=== PATIENT | female | born 1965 | race Hispanic/Latino ===

== ENCOUNTER 2021-07-01 16:59 | Inpatient (IN) | payer MEDICAID, OTHER ==
[~2021-07-01] VITALS: Ht 154.9 cm; Wt 67.4 kg
[2021-07-01 17:38] LABS: BASOPHILS % (AUTO) 0.4 % (0.0-5.0); EOSINOPHILS % (AUTO) 0.6 % (0.0-8.0); LYMPHOCYTES % (AUTO) 13.1 % (21.0-51.0); MEAN CORPUSCULAR HEMOGLOBIN 30.1 pg (27.0-33.0); MEAN CORPUSCULAR HGB CONC 33.9 g/dL (32.0-36.0); MEAN CORPUSCULAR VOLUME 88.8 fL (79-99); MONOCYTES % (AUTO) 5.7 % (3.0-13.0); NEUTROPHILS % (AUTO) 79.9 % (40.0-77.0); PLATELET COUNT (AUTO) 245 K/uL (130-400); RED BLOOD CELL COUNT(AUTO) 4.28 MIL/uL (4.00-5.50); RED CELL DISTRIBUTION WIDTH 11.9 % (11.0-15.5); WHITE BLOOD COUNT (AUTO) 12.1 K/uL (4.8-10.8)
[2021-07-01] MEDS ORDERED: VANCOMYCIN 1G VIAL IVPB STA (18:01)
[2021-07-01] MEDS ORDERED: ZOSYN 3.375GM+NS 50ML 50 ML IV STA (18:01)
[2021-07-01 18:03] LABS: CREATININE 0.8 mg/dL (0.5-1.5)
[2021-07-01 18:09] LABS: ALBUMIN 3.3 g/dL (3.5-5.0); BILIRUBIN,TOTAL 0.2 mg/dL (0.2-1.0); TOTAL PROTEIN, SERUM 8.1 g/dL (6.0-8.3)
[2021-07-01] MEDS ORDERED: ZOSYN 3.375GM+NS 50ML 50 ML ONE (18:09)
[2021-07-01] MEDS ORDERED: 0.9%NACL 50ML 50 ML IV ONE (18:11)
[2021-07-01] MEDS ORDERED: VANCOMYCIN 1G/250ML KIT 250 ML IV ONE (18:31)
[2021-07-01 19:11] LABS: APPEARANCE,URINE Clear (CLEAR); BILIRUBIN,URINE Negative (NEGATIVE); COLOR,URINE Yellow (YELLOW); GLUCOSE, URINE (UA) >=1000 mg/dL (NEGATIVE); KETONES,URINE 15 mg/dL (NEGATIVE); LEUKOCYTE ESTERASE ,URINE Negative (NEGATIVE); NITRATE,URINE Negative (NEGATIVE); OCCULT BLOOD,URINE Negative (NEGATIVE); PROTEIN,URINE Trace mg/dL (NEGATIVE)
[2021-07-01 19:22] LABS: BACTERIA,URINE Rare /HPF (None Seen); RBC,URINE 0-1 /HPF (0-1); SQUAMOUS EPITHELIAL CELL,UR Rare /HPF (0-2); WBC,URINE 0-1 /HPF (0-1)
[2021-07-01] MEDS ORDERED: ACETAMINOPHEN 325 MG TAB PO PRN ×2 (21:30)
[2021-07-01] MEDS ORDERED: LACTULOSE 20 GM/30 ML UDCUP PO PRN (21:30)
[2021-07-01] MEDS ORDERED: MAG/ALUM/SIMETH 30 ML UDCUP PO PRN (21:30)
[2021-07-01] MEDS ORDERED: NITROGLYCERIN 0.4 MG SL TAB SL PRN (21:30)
[2021-07-01] MEDS ORDERED: VANCOMYCIN PROTOCOL PER PHARMACY IV PRN (21:30)
[2021-07-01] MEDS ORDERED: ZOLPIDEM TARTRATE 5 MG TAB PO PRN (21:30)
[2021-07-01 21:59] LABS: HEMOGLOBIN A1C 11.7 % (4.0-6.0)
[2021-07-01] MEDS: LACTATED RINGERS 1000ML 1,000 ML IV SCH (22:20)
[2021-07-02 04:05] VITALS: BP 137/74
[2021-07-02] MEDS: ZOSYN 3.375GM+NS 50ML 50 ML IV SCH ×3 (05:36→20:24)
[2021-07-02] MEDS: INSULIN HUMULIN R 100 UNIT/ML 3ML SQ SCH ×7 (06:27→21:40)
[2021-07-02] MEDS: VANCOMYCIN 1G/250ML KIT 250 ML IV SCH ×2 (08:00→20:23)
[2021-07-02 08:15] VITALS: BP 107/58
[2021-07-02] MEDS: FAMOTIDINE 20MG TAB PO SCH ×2 (10:12→20:24)
[2021-07-02] MEDS: METRONIDAZOLE 500 MG TABLET PO SCH ×3 (10:12→20:24)
[2021-07-02] MEDS: LISINOPRIL 10 MG TABLET PO SCH (10:13)
[2021-07-02] MEDS: ENOXAPARIN SODIUM 40 MG/0.4 ML SYRINGE SQ SCH (10:14)
[2021-07-02 11:52] VITALS: BP 121/64
[2021-07-02] MEDS: LACTATED RINGERS 1000ML 1,000 ML IV SCH (14:09)
[2021-07-02] MEDS ORDERED: DIPH,PERTUSS(ACELL),TET VAC/PF 0.5 ML VIAL IM ONE (15:30)
[2021-07-02 16:14] VITALS: BP 151/87
[2021-07-02] MEDS: GUAIFENESIN-CODEINE 5 ML SYRUP PO PRN (17:54)
[2021-07-02] MEDS ORDERED: 0.9% NACL 250ML 250 ML ONE (19:45)
[2021-07-02 19:57] VITALS: BP 136/69
[2021-07-02] MEDS: INSULIN GLARGINE 100 UNITS/ML 10 ML VIAL SQ SCH (21:41)
[2021-07-02 23:13] VITALS: BP 100/54
[2021-07-03] VITALS (20 sets, daily range): BP systolic 97–162; BP diastolic 50–85
[2021-07-03] MEDS: LACTATED RINGERS 1000ML 1,000 ML IV SCH ×2 (03:26→20:06)
[2021-07-03] MEDS: ZOSYN 3.375GM+NS 50ML 50 ML IV SCH ×3 (04:17→20:06)
[2021-07-03] MEDS: ONDANSETRON 4MG INJ IV PRN (04:25)
[2021-07-03 04:53] LABS: HEMATOCRIT 33.9 % (36-48); MEAN CORPUSCULAR HEMOGLOBIN 29.8 pg (27.0-33.0); MEAN CORPUSCULAR HGB CONC 33.6 g/dL (32.0-36.0); MEAN CORPUSCULAR VOLUME 88.7 fL (79-99); RED BLOOD CELL COUNT(AUTO) 3.82 MIL/uL (4.00-5.50); WHITE BLOOD COUNT (AUTO) 13.3 K/uL (4.8-10.8)
[2021-07-03 05:03] LABS: INR 1.09 (0.85-1.15); PROTHROMBIN TIME 11.8 SEC (9.6-11.6)
[2021-07-03 05:04] LABS: PARTIAL THROMBOPLASTIN TIME 31.3 SEC (26.3-35.5)
[2021-07-03 05:05] LABS: POTASSIUM 3.5 mmol/L (3.5-5.1)
[2021-07-03] MEDS: INSULIN HUMULIN R 100 UNIT/ML 3ML SQ SCH ×7 (05:48→20:08)
[2021-07-03] MEDS: VANCOMYCIN 1G/250ML KIT 250 ML IV SCH ×2 (08:00→20:06)
[2021-07-03] MEDS ORDERED: GADOTERATE MEGLUMINE 10 MMOL/20 ML VIAL IV ONE (08:08)
[2021-07-03] MEDS: ENOXAPARIN SODIUM 40 MG/0.4 ML SYRINGE SQ SCH (09:00)
[2021-07-03] MEDS: METRONIDAZOLE 500 MG TABLET PO SCH ×3 (11:30→20:06)
[2021-07-03] MEDS: LISINOPRIL 10 MG TABLET PO SCH (11:31)
[2021-07-03] MEDS: FAMOTIDINE 20MG TAB PO SCH ×2 (11:31→20:06)
[2021-07-03] MEDS ORDERED: 0.9%NACL 1000ML 1,000 ML IV ONE (12:25)
[2021-07-03] MEDS ORDERED: BUPIVACAINE/PF 0.5% 30ML VIAL ONE (13:21)
[2021-07-03] MEDS ORDERED: LIDOCAINE HCL 1% 20 ML VIAL ONE (13:21)
[2021-07-03] MEDS ORDERED: PROPOFOL 10 MG/ML 20ML VIAL IV ONE ×2 (13:34→13:44)
[2021-07-03] MEDS ORDERED: LIDOCAINE PF 100MG/5ML (2%) SYRINGE 5ML ONE (13:34)
[2021-07-03] MEDS ORDERED: MIDAZOLAM HCL 1 MG/ML 2ML VIAL ONE (13:34)
[2021-07-03] MEDS ORDERED: FENTANYL CITRATE PF 50 MCG/1 ML 2ML VIAL ONE (13:34)
[2021-07-03] MEDS ORDERED: ONDANSETRON 4MG INJ ONE (13:49)
[2021-07-03] MEDS ORDERED: EPHEDRINE SULFATE 50 MG/ML AMPULE ONE (14:00)
[2021-07-03] MEDS: INSULIN GLARGINE 100 UNITS/ML 10 ML VIAL SQ SCH (20:08)
[2021-07-03] MEDS: GUAIFENESIN-CODEINE 5 ML SYRUP PO PRN (20:10)
[2021-07-04 03:53] VITALS: BP 115/57
[2021-07-04] MEDS: ZOSYN 3.375GM+NS 50ML 50 ML IV SCH ×3 (04:05→20:36)
[2021-07-04 04:38] LABS: HEMATOCRIT 34.1 % (36-48); MEAN CORPUSCULAR HEMOGLOBIN 30.1 pg (27.0-33.0); MEAN CORPUSCULAR VOLUME 88.3 fL (79-99); RED BLOOD CELL COUNT(AUTO) 3.86 MIL/uL (4.00-5.50); WHITE BLOOD COUNT (AUTO) 13.9 K/uL (4.8-10.8)
[2021-07-04 05:01] LABS: CREATININE 1.1 mg/dL (0.5-1.5); POTASSIUM 3.5 mmol/L (3.5-5.1)
[2021-07-04] MEDS: INSULIN HUMULIN R 100 UNIT/ML 3ML SQ SCH ×7 (05:43→20:29)
[2021-07-04] MEDS ORDERED: MORPHINE 2 MG SYG IVP PRN (08:00)
[2021-07-04 08:20] VITALS: BP 143/78
[2021-07-04] MEDS ORDERED: HYDROMORPHONE 0.5 MG SYG (0.5MG/0.5ML) IVP PRN (08:30)
[2021-07-04] MEDS: VANCOMYCIN 1G/250ML KIT 250 ML IV SCH ×2 (09:42→20:36)
[2021-07-04] MEDS: METRONIDAZOLE 500 MG TABLET PO SCH ×3 (09:44→20:36)
[2021-07-04] MEDS: FAMOTIDINE 20MG TAB PO SCH ×2 (09:44→20:36)
[2021-07-04] MEDS: LISINOPRIL 10 MG TABLET PO SCH (09:44)
[2021-07-04] MEDS: ENOXAPARIN SODIUM 40 MG/0.4 ML SYRINGE SQ SCH (09:45)
[2021-07-04] MEDS: ONDANSETRON 4MG INJ IV PRN ×2 (09:52→23:47)
[2021-07-04 12:03] VITALS: BP 138/71
[2021-07-04] MEDS: LACTATED RINGERS 1000ML 1,000 ML IV SCH (12:19)
[2021-07-04 16:17] VITALS: BP 134/69
[2021-07-04 20:04] VITALS: BP 146/73
[2021-07-04] MEDS: INSULIN GLARGINE 100 UNITS/ML 10 ML VIAL SQ SCH (20:43)
[2021-07-05] VITALS (8 sets, daily range): BP systolic 152–187; BP diastolic 80–91
[2021-07-05] MEDS: ZOSYN 3.375GM+NS 50ML 50 ML IV SCH (04:08)
[2021-07-05] MEDS: INSULIN HUMULIN R 100 UNIT/ML 3ML SQ SCH ×7 (05:49→21:00)
[2021-07-05 06:09] LABS: BASOPHILS % (AUTO) 0.5 % (0.0-5.0); EOSINOPHILS % (AUTO) 0.4 % (0.0-8.0); HEMATOCRIT 30.8 % (36-48); LYMPHOCYTES % (AUTO) 12.7 % (21.0-51.0); MEAN CORPUSCULAR HEMOGLOBIN 29.8 pg (27.0-33.0); MEAN CORPUSCULAR HGB CONC 33.4 g/dL (32.0-36.0); MONOCYTES % (AUTO) 6.2 % (3.0-13.0); NEUTROPHILS % (AUTO) 79.8 % (40.0-77.0); PLATELET COUNT (AUTO) 244 K/uL (130-400); RED BLOOD CELL COUNT(AUTO) 3.46 MIL/uL (4.00-5.50); RED CELL DISTRIBUTION WIDTH 12.3 % (11.0-15.5); WHITE BLOOD COUNT (AUTO) 9.7 K/uL (4.8-10.8)
[2021-07-05 06:24] LABS: CREATININE 0.9 mg/dL (0.5-1.5); POTASSIUM 3.1 mmol/L (3.5-5.1)
[2021-07-05] MEDS ORDERED: KCL 20 MEQ ERTAB PO PRN (08:00)
[2021-07-05] MEDS ORDERED: LIDOCAINE HCL-MPF 1% 2ML VIAL IV PRN (08:00)
[2021-07-05] MEDS ORDERED: POTASSIUM CHLORIDE 10% ELIXIR 20 MEQ/15 ML UDCUP PO PRN ×2 (08:00→19:30)
[2021-07-05] MEDS: VANCOMYCIN 1G/250ML KIT 250 ML IV SCH (08:00)
[2021-07-05] MEDS ORDERED: POTASSIUM CHLORIDE 20MEQ/100ML 100 ML IV PRN (08:00)
[2021-07-05] MEDS: METRONIDAZOLE 500 MG TABLET PO SCH (09:05)
[2021-07-05] MEDS: FAMOTIDINE 20MG TAB PO SCH ×2 (09:06→20:46)
[2021-07-05] MEDS: LISINOPRIL 10 MG TABLET PO SCH (09:06)
[2021-07-05] MEDS: ENOXAPARIN SODIUM 40 MG/0.4 ML SYRINGE SQ SCH (09:08)
[2021-07-05] MEDS: ONDANSETRON 4MG INJ IV PRN ×2 (09:10→16:57)
[2021-07-05] MEDS: HYDRALAZINE 20MG/ML VIAL IV PRN (17:41)
[2021-07-05] MEDS: DOXYCYCLINE HYCLATE 100 MG TABLET PO SCH (20:46)
[2021-07-05] MEDS: ATORVASTATIN 40 MG TABLET PO SCH (20:46)
[2021-07-05] MEDS: KCL 20 MEQ ERTAB PO PRN (20:47)
[2021-07-05] MEDS: INSULIN GLARGINE 100 UNITS/ML 10 ML VIAL SQ SCH (21:10)
[2021-07-06] MEDS: ONDANSETRON 4MG INJ IV PRN ×2 (00:07→08:50)
[2021-07-06 00:08] VITALS: BP 153/85
[2021-07-06] MEDS: POTASSIUM CHLORIDE 20MEQ/100ML 100 ML IV PRN ×2 (00:08→03:22)
[2021-07-06] MEDS: LIDOCAINE HCL-MPF 1% 2ML VIAL IV PRN ×2 (00:08→03:22)
[2021-07-06 04:08] VITALS: BP 165/86
[2021-07-06] MEDS: HYDRALAZINE 20MG/ML VIAL IV PRN (04:59)
[2021-07-06] MEDS: INSULIN HUMULIN R 100 UNIT/ML 3ML SQ SCH ×7 (06:21→20:42)
[2021-07-06 06:26] LABS: BASOPHILS % (AUTO) 0.6 % (0.0-5.0); EOSINOPHILS % (AUTO) 0.2 % (0.0-8.0); HEMATOCRIT 35.3 % (36-48); LYMPHOCYTES % (AUTO) 12.5 % (21.0-51.0); MEAN CORPUSCULAR HEMOGLOBIN 29.9 pg (27.0-33.0); MEAN CORPUSCULAR HGB CONC 33.7 g/dL (32.0-36.0); MEAN CORPUSCULAR VOLUME 88.7 fL (79-99); MONOCYTES % (AUTO) 7.5 % (3.0-13.0); NEUTROPHILS % (AUTO) 78.8 % (40.0-77.0); PLATELET COUNT (AUTO) 289 K/uL (130-400); RED BLOOD CELL COUNT(AUTO) 3.98 MIL/uL (4.00-5.50); RED CELL DISTRIBUTION WIDTH 12.1 % (11.0-15.5); WHITE BLOOD COUNT (AUTO) 10.6 K/uL (4.8-10.8)
[2021-07-06 06:45] LABS: CREATININE 0.8 mg/dL (0.5-1.5); POTASSIUM 3.6 mmol/L (3.5-5.1)
[2021-07-06 08:00] VITALS: BP 131/67
[2021-07-06] MEDS: DOXYCYCLINE HYCLATE 100 MG TABLET PO SCH ×3 (08:38→20:30)
[2021-07-06] MEDS: ASPIRIN 81 MG EC TAB PO SCH (08:38)
[2021-07-06] MEDS: FAMOTIDINE 20MG TAB PO SCH ×3 (08:38→20:29)
[2021-07-06] MEDS: LISINOPRIL 10 MG TABLET PO SCH (08:39)
[2021-07-06] MEDS: ENOXAPARIN SODIUM 40 MG/0.4 ML SYRINGE SQ SCH (08:42)
[2021-07-06 12:00] VITALS: BP 150/82
[2021-07-06] MEDS ORDERED: LISINOPRIL 10 MG TABLET PO SCH (12:00)
[2021-07-06] MEDS ORDERED: IOHEXOL-350 75 ML VIAL IV ONE (14:38)
[2021-07-06 16:00] VITALS: BP 158/93
[2021-07-06] MEDS: KCL 20 MEQ ERTAB PO PRN (18:36)
[2021-07-06 20:08] VITALS: BP 162/81
[2021-07-06] MEDS: ATORVASTATIN 40 MG TABLET PO SCH ×2 (20:27→20:29)
[2021-07-06] MEDS: INSULIN GLARGINE 100 UNITS/ML 10 ML VIAL SQ SCH (20:43)
[2021-07-07] VITALS (7 sets, daily range): BP systolic 130–170; BP diastolic 68–88
[2021-07-07 05:59] LABS: BASOPHILS % (AUTO) 0.3 % (0.0-5.0); EOSINOPHILS % (AUTO) 0.6 % (0.0-8.0); HEMATOCRIT 33.4 % (36-48); LYMPHOCYTES % (AUTO) 14.6 % (21.0-51.0); MEAN CORPUSCULAR HEMOGLOBIN 29.7 pg (27.0-33.0); MEAN CORPUSCULAR HGB CONC 33.8 g/dL (32.0-36.0); MEAN CORPUSCULAR VOLUME 87.7 fL (79-99); MONOCYTES % (AUTO) 7.6 % (3.0-13.0); NEUTROPHILS % (AUTO) 76.5 % (40.0-77.0); PLATELET COUNT (AUTO) 301 K/uL (130-400); RED BLOOD CELL COUNT(AUTO) 3.81 MIL/uL (4.00-5.50); RED CELL DISTRIBUTION WIDTH 12.8 % (11.0-15.5); WHITE BLOOD COUNT (AUTO) 10.3 K/uL (4.8-10.8)
[2021-07-07] MEDS: INSULIN HUMULIN R 100 UNIT/ML 3ML SQ SCH ×7 (06:11→20:41)
[2021-07-07 06:12] LABS: CREATININE 1.1 mg/dL (0.5-1.5); POTASSIUM 3.4 mmol/L (3.5-5.1)
[2021-07-07] MEDS: ASPIRIN 81 MG EC TAB PO SCH (09:28)
[2021-07-07] MEDS: LISINOPRIL 10 MG TABLET PO SCH (09:29)
[2021-07-07] MEDS: ENOXAPARIN SODIUM 40 MG/0.4 ML SYRINGE SQ SCH (09:30)
[2021-07-07] MEDS: CLOPIDOGREL 75MG TAB PO SCH (11:54)
[2021-07-07] MEDS: INSULIN GLARGINE 100 UNITS/ML 10 ML VIAL SQ SCH (20:41)
[2021-07-07] MEDS: FAMOTIDINE 20MG TAB PO SCH (20:46)
[2021-07-07] MEDS: DOXYCYCLINE HYCLATE 100 MG TABLET PO SCH (20:46)
[2021-07-07] MEDS: ATORVASTATIN 40 MG TABLET PO SCH (20:46)
[2021-07-08 04:28] VITALS: BP 143/78
[2021-07-08] MEDS: INSULIN HUMULIN R 100 UNIT/ML 3ML SQ SCH ×7 (06:23→21:00)
[2021-07-08 08:06] VITALS: BP 177/94
[2021-07-08] MEDS: LISINOPRIL 10 MG TABLET PO SCH (10:16)
[2021-07-08] MEDS: ASPIRIN 81 MG EC TAB PO SCH (10:16)
[2021-07-08] MEDS: ENOXAPARIN SODIUM 40 MG/0.4 ML SYRINGE SQ SCH (10:16)
[2021-07-08] MEDS: DOXYCYCLINE HYCLATE 100 MG TABLET PO SCH ×2 (10:17→19:59)
[2021-07-08] MEDS: CLOPIDOGREL 75MG TAB PO SCH (10:17)
[2021-07-08] MEDS: FAMOTIDINE 20MG TAB PO SCH ×2 (10:21→19:59)
[2021-07-08 11:40] VITALS: BP 178/94
[2021-07-08 15:23] VITALS: BP 192/102
[2021-07-08] MEDS: ATORVASTATIN 40 MG TABLET PO SCH (19:59)
[2021-07-08] MEDS: ONDANSETRON 4MG INJ IV PRN (19:59)
[2021-07-08 20:39] VITALS: BP_SYST 146
[2021-07-08] MEDS: INSULIN GLARGINE 100 UNITS/ML 10 ML VIAL SQ SCH (21:00)
[2021-07-08 23:13] VITALS: BP 143/72
[2021-07-09 04:16] VITALS: BP 141/74
[2021-07-09 05:27] LABS: BASOPHILS % (AUTO) 0.4 % (0.0-5.0); EOSINOPHILS % (AUTO) 1.4 % (0.0-8.0); HEMATOCRIT 34.3 % (36-48); LYMPHOCYTES % (AUTO) 20.1 % (21.0-51.0); MEAN CORPUSCULAR HEMOGLOBIN 29.8 pg (27.0-33.0); MEAN CORPUSCULAR HGB CONC 34.1 g/dL (32.0-36.0); MEAN CORPUSCULAR VOLUME 87.3 fL (79-99); MONOCYTES % (AUTO) 6.2 % (3.0-13.0); NEUTROPHILS % (AUTO) 71.6 % (40.0-77.0); PLATELET COUNT (AUTO) 317 K/uL (130-400); RED BLOOD CELL COUNT(AUTO) 3.93 MIL/uL (4.00-5.50); RED CELL DISTRIBUTION WIDTH 12.4 % (11.0-15.5); WHITE BLOOD COUNT (AUTO) 9.9 K/uL (4.8-10.8)
[2021-07-09 05:40] LABS: POTASSIUM 3.1 mmol/L (3.5-5.1)
[2021-07-09] MEDS: INSULIN HUMULIN R 100 UNIT/ML 3ML SQ SCH ×7 (07:30→20:37)
[2021-07-09 08:00] VITALS: BP 150/85
[2021-07-09] MEDS: CLOPIDOGREL 75MG TAB PO SCH (09:42)
[2021-07-09] MEDS: ASPIRIN 81 MG EC TAB PO SCH (09:42)
[2021-07-09] MEDS: FAMOTIDINE 20MG TAB PO SCH ×2 (09:42→20:06)
[2021-07-09] MEDS: DOXYCYCLINE HYCLATE 100 MG TABLET PO SCH ×2 (09:42→20:06)
[2021-07-09] MEDS: LISINOPRIL 10 MG TABLET PO SCH (09:42)
[2021-07-09] MEDS: ENOXAPARIN SODIUM 40 MG/0.4 ML SYRINGE SQ SCH (09:43)
[2021-07-09 11:43] VITALS: BP 184/86
[2021-07-09 16:00] VITALS: BP 162/81
[2021-07-09 19:53] VITALS: BP 127/64
[2021-07-09] MEDS: ATORVASTATIN 40 MG TABLET PO SCH (20:06)
[2021-07-09] MEDS: INSULIN GLARGINE 100 UNITS/ML 10 ML VIAL SQ SCH (20:37)
[2021-07-10 00:12] VITALS: BP 128/62
[2021-07-10 03:48] VITALS: BP 136/78
[2021-07-10 05:15] LABS: BASOPHILS % (AUTO) 0.8 % (0.0-5.0); HEMATOCRIT 32.9 % (36-48); LYMPHOCYTES % (AUTO) 26.5 % (21.0-51.0); MEAN CORPUSCULAR HEMOGLOBIN 29.2 pg (27.0-33.0); MEAN CORPUSCULAR HGB CONC 33.1 g/dL (32.0-36.0); MEAN CORPUSCULAR VOLUME 88.2 fL (79-99); MONOCYTES % (AUTO) 7.8 % (3.0-13.0); NEUTROPHILS % (AUTO) 62.5 % (40.0-77.0); PLATELET COUNT (AUTO) 307 K/uL (130-400); RED BLOOD CELL COUNT(AUTO) 3.73 MIL/uL (4.00-5.50); RED CELL DISTRIBUTION WIDTH 12.5 % (11.0-15.5)
[2021-07-10] MEDS: INSULIN HUMULIN R 100 UNIT/ML 3ML SQ SCH ×7 (05:25→20:28)
[2021-07-10 05:35] LABS: ALBUMIN 2.3 g/dL (3.5-5.0); BILIRUBIN,TOTAL 0.2 mg/dL (0.2-1.0); CREATININE 1.1 mg/dL (0.5-1.5); TOTAL PROTEIN, SERUM 6.3 g/dL (6.0-8.3)
[2021-07-10] MEDS: KCL 20 MEQ ERTAB PO PRN ×3 (05:44→15:07)
[2021-07-10 07:57] VITALS: BP 154/81
[2021-07-10] MEDS: ASPIRIN 81 MG EC TAB PO SCH (09:18)
[2021-07-10] MEDS: LISINOPRIL 10 MG TABLET PO SCH (09:18)
[2021-07-10] MEDS: FAMOTIDINE 20MG TAB PO SCH ×2 (09:19→20:55)
[2021-07-10] MEDS: DOXYCYCLINE HYCLATE 100 MG TABLET PO SCH ×2 (09:19→20:55)
[2021-07-10] MEDS: CLOPIDOGREL 75MG TAB PO SCH (09:19)
[2021-07-10] MEDS: ENOXAPARIN SODIUM 40 MG/0.4 ML SYRINGE SQ SCH (09:20)
[2021-07-10 12:00] VITALS: BP 144/85
[2021-07-10] MEDS: HYDRALAZINE 20MG/ML VIAL IV PRN (15:58)
[2021-07-10 16:00] VITALS: BP 179/101
[2021-07-10] MEDS: ONDANSETRON 4MG INJ IV PRN (18:12)
[2021-07-10 19:27] VITALS: BP 133/72
[2021-07-10] MEDS: ATORVASTATIN 40 MG TABLET PO SCH (20:55)
[2021-07-10] MEDS: INSULIN GLARGINE 100 UNITS/ML 10 ML VIAL SQ SCH (20:56)
[2021-07-11] VITALS (22 sets, daily range): BP systolic 94–190; BP diastolic 55–112
[2021-07-11] MEDS: INSULIN HUMULIN R 100 UNIT/ML 3ML SQ SCH ×7 (05:52→20:12)
[2021-07-11] MEDS ORDERED: 0.9%NACL 1000ML 1,000 ML IV ONE (06:28)
[2021-07-11] MEDS ORDERED: LIDOCAINE HCL 1% 20 ML VIAL ONE (07:07)
[2021-07-11] MEDS ORDERED: BUPIVACAINE/PF 0.5% 30ML VIAL ONE (07:08)
[2021-07-11] MEDS ORDERED: PROPOFOL 10 MG/ML 20ML VIAL IV ONE (07:28)
[2021-07-11] MEDS ORDERED: MIDAZOLAM HCL 1 MG/ML 2ML VIAL ONE (07:28)
[2021-07-11] MEDS ORDERED: FENTANYL CITRATE PF 50 MCG/1 ML 2ML VIAL ONE (07:28)
[2021-07-11] MEDS ORDERED: ONDANSETRON 4MG INJ ONE (07:28)
[2021-07-11] MEDS ORDERED: LIDOCAINE PF 100MG/5ML (2%) SYRINGE 5ML ONE (07:29)
[2021-07-11] MEDS ORDERED: CEFAZOLIN SODIUM 1 GM VIAL ONE (07:59)
[2021-07-11] MEDS ORDERED: PHENYLEPHRINE HCL 10 MG/ML 1ML VIAL IV ONE (08:02)
[2021-07-11] MEDS: FAMOTIDINE 20MG TAB PO SCH ×2 (09:00→20:15)
[2021-07-11] MEDS: LISINOPRIL 10 MG TABLET PO SCH (09:00)
[2021-07-11] MEDS: ASPIRIN 81 MG EC TAB PO SCH (09:00)
[2021-07-11] MEDS: ENOXAPARIN SODIUM 40 MG/0.4 ML SYRINGE SQ SCH (09:00)
[2021-07-11] MEDS: CLOPIDOGREL 75MG TAB PO SCH (09:00)
[2021-07-11] MEDS ORDERED: HYDROMORPHONE 1 MG INJ IVP PRN (11:30)
[2021-07-11] MEDS: DOXYCYCLINE HYCLATE 100 MG TABLET PO SCH ×2 (11:46→20:15)
[2021-07-11] MEDS: HYDRALAZINE 20MG/ML VIAL IV PRN (12:10)
[2021-07-11 16:24] LABS: APPEARANCE,URINE CLOUDY (CLEAR); BILIRUBIN,URINE NEGATIVE (NEGATIVE); COLOR,URINE ORANGE (YELLOW); GLUCOSE, URINE (UA) 100 mg/dL (NEGATIVE); KETONES,URINE 15 mg/dL (NEGATIVE); LEUKOCYTE ESTERASE ,URINE TRACE (NEGATIVE); NITRATE,URINE NEGATIVE (NEGATIVE); OCCULT BLOOD,URINE LARGE (NEGATIVE); PH,URINE 6.5 (5.0-8.0); PROTEIN,URINE 30 mg/dL (NEGATIVE); UROBILINOGEN,URINE 0.2 mg/dL (0.2-1.0)
[2021-07-11 16:42] LABS: BACTERIA,URINE Rare /HPF (None Seen); RBC,URINE >100 /HPF (0-1); SQUAMOUS EPITHELIAL CELL,UR Rare /HPF (0-2)
[2021-07-11] MEDS: MORPHINE 2 MG SYG IVP PRN (18:36)
[2021-07-11] MEDS: ATORVASTATIN 40 MG TABLET PO SCH (20:15)
[2021-07-11] MEDS: INSULIN GLARGINE 100 UNITS/ML 10 ML VIAL SQ SCH (20:28)
[2021-07-12 03:24] VITALS: BP 146/78
[2021-07-12] MEDS: INSULIN HUMULIN R 100 UNIT/ML 3ML SQ SCH ×8 (06:10→19:50)
[2021-07-12 06:36] LABS: BASOPHILS % (AUTO) 0.4 % (0.0-5.0); EOSINOPHILS % (AUTO) 0.7 % (0.0-8.0); HEMATOCRIT 33.3 % (36-48); LYMPHOCYTES % (AUTO) 15.4 % (21.0-51.0); MEAN CORPUSCULAR HEMOGLOBIN 29.5 pg (27.0-33.0); MEAN CORPUSCULAR HGB CONC 32.1 g/dL (32.0-36.0); MEAN CORPUSCULAR VOLUME 91.7 fL (79-99); MONOCYTES % (AUTO) 5.1 % (3.0-13.0); NEUTROPHILS % (AUTO) 77.8 % (40.0-77.0); PLATELET COUNT (AUTO) 281 K/uL (130-400); RED BLOOD CELL COUNT(AUTO) 3.63 MIL/uL (4.00-5.50); RED CELL DISTRIBUTION WIDTH 12.9 % (11.0-15.5); WHITE BLOOD COUNT (AUTO) 12.2 K/uL (4.8-10.8)
[2021-07-12 06:43] LABS: POTASSIUM 3.6 mmol/L (3.5-5.1)
[2021-07-12 07:10] VITALS: BP 135/72
[2021-07-12] MEDS ORDERED: IOHEXOL-350 75 ML VIAL IV ONE (07:50)
[2021-07-12] MEDS: MORPHINE 2 MG SYG IVP PRN (07:59)
[2021-07-12] MEDS: ENOXAPARIN SODIUM 40 MG/0.4 ML SYRINGE SQ SCH (09:00)
[2021-07-12] MEDS: CLOPIDOGREL 75MG TAB PO SCH (09:00)
[2021-07-12 11:10] VITALS: BP 124/74
[2021-07-12] MEDS: DOXYCYCLINE HYCLATE 100 MG TABLET PO SCH ×2 (11:31→19:48)
[2021-07-12] MEDS: FAMOTIDINE 20MG TAB PO SCH ×2 (11:32→19:48)
[2021-07-12] MEDS: ASPIRIN 81 MG EC TAB PO SCH (11:32)
[2021-07-12] MEDS: LISINOPRIL 10 MG TABLET PO SCH (11:32)
[2021-07-12 15:10] VITALS: BP 145/84
[2021-07-12 19:45] VITALS: BP 137/76
[2021-07-12] MEDS: ATORVASTATIN 40 MG TABLET PO SCH (19:48)
[2021-07-12] MEDS: INSULIN GLARGINE 100 UNITS/ML 10 ML VIAL SQ SCH (19:50)
[2021-07-12 23:20] VITALS: BP 140/78
[2021-07-13] MEDS: MORPHINE 2 MG SYG IVP PRN (00:04)
[2021-07-13] MEDS: ONDANSETRON 4MG INJ IV PRN (00:07)
[2021-07-13 03:50] VITALS: BP 125/74
[2021-07-13] MEDS: INSULIN HUMULIN R 100 UNIT/ML 3ML SQ SCH ×7 (06:11→19:54)
[2021-07-13 06:14] LABS: BASOPHILS % (AUTO) 0.6 % (0.0-5.0); EOSINOPHILS % (AUTO) 1.3 % (0.0-8.0); HEMATOCRIT 32.6 % (36-48); LYMPHOCYTES % (AUTO) 17.3 % (21.0-51.0); MEAN CORPUSCULAR HEMOGLOBIN 29.6 pg (27.0-33.0); MEAN CORPUSCULAR HGB CONC 32.8 g/dL (32.0-36.0); MEAN CORPUSCULAR VOLUME 90.3 fL (79-99); MONOCYTES % (AUTO) 6.4 % (3.0-13.0); NEUTROPHILS % (AUTO) 74.1 % (40.0-77.0); PLATELET COUNT (AUTO) 275 K/uL (130-400); RED BLOOD CELL COUNT(AUTO) 3.61 MIL/uL (4.00-5.50); RED CELL DISTRIBUTION WIDTH 12.8 % (11.0-15.5); WHITE BLOOD COUNT (AUTO) 10.5 K/uL (4.8-10.8)
[2021-07-13 06:24] LABS: CREATININE 1.1 mg/dL (0.5-1.5); POTASSIUM 3.6 mmol/L (3.5-5.1)
[2021-07-13 07:10] VITALS: BP 139/80
[2021-07-13] MEDS: FAMOTIDINE 20MG TAB PO SCH ×2 (09:04→19:53)
[2021-07-13] MEDS: LISINOPRIL 10 MG TABLET PO SCH (09:05)
[2021-07-13] MEDS: ASPIRIN 81 MG EC TAB PO SCH (09:05)
[2021-07-13] MEDS: DOXYCYCLINE HYCLATE 100 MG TABLET PO SCH ×2 (09:05→19:53)
[2021-07-13 11:10] VITALS: BP 168/78
[2021-07-13 15:10] VITALS: BP 169/90
[2021-07-13] MEDS: HYDRALAZINE 20MG/ML VIAL IV PRN (16:33)
[2021-07-13] MEDS: ATORVASTATIN 40 MG TABLET PO SCH (19:54)
[2021-07-13 20:07] VITALS: BP 124/58
[2021-07-13] MEDS: INSULIN GLARGINE 100 UNITS/ML 10 ML VIAL SQ SCH (20:11)
[2021-07-13 23:29] VITALS: BP 94/58
[2021-07-14 04:13] VITALS: BP 111/60
[2021-07-14] MEDS: INSULIN HUMULIN R 100 UNIT/ML 3ML SQ SCH ×7 (05:35→21:00)
[2021-07-14 06:29] LABS: BASOPHILS % (AUTO) 0.6 % (0.0-5.0); EOSINOPHILS % (AUTO) 1.9 % (0.0-8.0); HEMATOCRIT 32.6 % (36-48); LYMPHOCYTES % (AUTO) 22.5 % (21.0-51.0); MEAN CORPUSCULAR HEMOGLOBIN 29.8 pg (27.0-33.0); MEAN CORPUSCULAR HGB CONC 33.1 g/dL (32.0-36.0); MEAN CORPUSCULAR VOLUME 89.8 fL (79-99); MONOCYTES % (AUTO) 6.1 % (3.0-13.0); NEUTROPHILS % (AUTO) 68.7 % (40.0-77.0); PLATELET COUNT (AUTO) 275 K/uL (130-400); RED BLOOD CELL COUNT(AUTO) 3.63 MIL/uL (4.00-5.50); RED CELL DISTRIBUTION WIDTH 12.6 % (11.0-15.5); WHITE BLOOD COUNT (AUTO) 8.8 K/uL (4.8-10.8)
[2021-07-14 08:00] VITALS: BP 140/81
[2021-07-14] MEDS: DOXYCYCLINE HYCLATE 100 MG TABLET PO SCH ×2 (10:08→20:36)
[2021-07-14] MEDS: FAMOTIDINE 20MG TAB PO SCH ×2 (10:08→20:36)
[2021-07-14] MEDS: ASPIRIN 81 MG EC TAB PO SCH (10:09)
[2021-07-14] MEDS: LISINOPRIL 10 MG TABLET PO SCH (10:09)
[2021-07-14 11:58] VITALS: BP 157/82
[2021-07-14 16:00] VITALS: BP 174/93
[2021-07-14 20:00] VITALS: BP 156/77
[2021-07-14] MEDS: ATORVASTATIN 40 MG TABLET PO SCH (20:36)
[2021-07-14] MEDS: INSULIN GLARGINE 100 UNITS/ML 10 ML VIAL SQ SCH (20:59)
[2021-07-15] VITALS (15 sets, daily range): BP systolic 109–155; BP diastolic 37–80
[2021-07-15 04:27] LABS: HEMATOCRIT 32.2 % (36-48)
[2021-07-15 05:00] LABS: POTASSIUM 3.3 mmol/L (3.5-5.1)
[2021-07-15] MEDS: INSULIN HUMULIN R 100 UNIT/ML 3ML SQ SCH ×6 (07:30→18:30)
[2021-07-15] MEDS: DOXYCYCLINE HYCLATE 100 MG TABLET PO SCH ×2 (09:38→21:12)
[2021-07-15] MEDS: LISINOPRIL 10 MG TABLET PO SCH (09:38)
[2021-07-15] MEDS: FAMOTIDINE 20MG TAB PO SCH ×2 (09:38→21:12)
[2021-07-15] MEDS: ASPIRIN 81 MG EC TAB PO SCH (09:51)
[2021-07-15] MEDS: KCL 20 MEQ ERTAB PO SCH (11:58)
[2021-07-15] MEDS ORDERED: IODIXANOL 320 MG/ML 100 ML VIAL ONE (12:09)
[2021-07-15] MEDS ORDERED: LIDOCAINE HCL 400MG/20ML VIAL ONE (12:09)
[2021-07-15] MEDS ORDERED: NITROGLYCERIN 50MG VIAL IV ONE (12:09)
[2021-07-15] MEDS ORDERED: HEPARIN 10,000 UNIT/10ML (1,000 UNIT/ML) VIAL ONE (12:09)
[2021-07-15] MEDS ORDERED: SODIUM BICARB 50MEQ 50ML VIAL 50 ML ONE (12:09)
[2021-07-15] MEDS ORDERED: LABETALOL 20MG VIAL IV ONE ×2 (12:41→13:10)
[2021-07-15] MEDS ORDERED: 0.9%NACL 1000ML 1,000 ML IV SCH (14:00)
[2021-07-15] MEDS: INSULIN GLARGINE 100 UNITS/ML 10 ML VIAL SQ SCH (21:00)
[2021-07-15] MEDS: ATORVASTATIN 40 MG TABLET PO SCH (21:12)
[2021-07-16] VITALS (11 sets, daily range): BP systolic 107–152; BP diastolic 47–79
[2021-07-16] MEDS: INSULIN HUMULIN R 100 UNIT/ML 3ML SQ SCH ×8 (00:06→20:32)
[2021-07-16 04:35] LABS: CREATININE 1.1 mg/dL (0.5-1.5)
[2021-07-16 04:36] LABS: HEMATOCRIT 31.6 % (36-48); MEAN CORPUSCULAR HEMOGLOBIN 29.6 pg (27.0-33.0); MEAN CORPUSCULAR HGB CONC 32.6 g/dL (32.0-36.0); MEAN CORPUSCULAR VOLUME 90.8 fL (79-99); RED BLOOD CELL COUNT(AUTO) 3.48 MIL/uL (4.00-5.50); RED CELL DISTRIBUTION WIDTH 12.9 % (11.0-15.5); WHITE BLOOD COUNT (AUTO) 8.2 K/uL (4.8-10.8)
[2021-07-16] MEDS: LISINOPRIL 10 MG TABLET PO SCH (09:38)
[2021-07-16] MEDS: DOXYCYCLINE HYCLATE 100 MG TABLET PO SCH ×2 (09:39→20:23)
[2021-07-16] MEDS: ASPIRIN 81 MG EC TAB PO SCH (09:39)
[2021-07-16] MEDS: FAMOTIDINE 20MG TAB PO SCH ×2 (09:39→20:23)
[2021-07-16] MEDS: KCL 20 MEQ ERTAB PO SCH (09:42)
[2021-07-16] MEDS ORDERED: MIDAZOLAM HCL 1 MG/ML 2ML VIAL ONE (13:12)
[2021-07-16] MEDS ORDERED: HEPARIN 10,000 UNIT/10ML (1,000 UNIT/ML) VIAL ONE (13:12)
[2021-07-16] MEDS ORDERED: NITROGLYCERIN 50MG VIAL IV ONE (13:12)
[2021-07-16] MEDS ORDERED: SODIUM BICARB 50MEQ 50ML VIAL 50 ML ONE (13:12)
[2021-07-16] MEDS ORDERED: FENTANYL CITRATE PF 50 MCG/1 ML 2ML VIAL ONE (13:12)
[2021-07-16] MEDS ORDERED: IODIXANOL 320 MG/ML 100 ML VIAL ONE (13:12)
[2021-07-16] MEDS ORDERED: LIDOCAINE HCL 400MG/20ML VIAL ONE (13:13)
[2021-07-16] MEDS ORDERED: LABETALOL 20MG VIAL IV ONE ×2 (14:30→15:00)
[2021-07-16] MEDS ORDERED: CLOPIDOGREL 300MG TAB ONE ×2 (14:37→15:08)
[2021-07-16] MEDS ORDERED: ENALAPRILAT DIHYDRATE 1.25 MG/ML 2ML VIAL IVP ONE (14:51)
[2021-07-16] MEDS ORDERED: 0.9%NACL 1000ML 1,000 ML IV SCH (15:00)
[2021-07-16] MEDS: ONDANSETRON 4MG INJ IV PRN (16:30)
[2021-07-16] MEDS: ATORVASTATIN 40 MG TABLET PO SCH (20:23)
[2021-07-16] MEDS: INSULIN GLARGINE 100 UNITS/ML 10 ML VIAL SQ SCH (20:32)
[2021-07-17 00:06] VITALS: BP 107/58
[2021-07-17 03:44] VITALS: BP 99/51
[2021-07-17 04:49] LABS: HEMATOCRIT 30.7 % (36-48); MEAN CORPUSCULAR HEMOGLOBIN 29.3 pg (27.0-33.0); MEAN CORPUSCULAR HGB CONC 31.9 g/dL (32.0-36.0); MEAN CORPUSCULAR VOLUME 91.6 fL (79-99); RED BLOOD CELL COUNT(AUTO) 3.35 MIL/uL (4.00-5.50); WHITE BLOOD COUNT (AUTO) 8.3 K/uL (4.8-10.8)
[2021-07-17 05:18] LABS: POTASSIUM 3.7 mmol/L (3.5-5.1)
[2021-07-17] MEDS: INSULIN HUMULIN R 100 UNIT/ML 3ML SQ SCH ×4 (05:57→11:30)
[2021-07-17 08:06] VITALS: BP 117/61
[2021-07-17] MEDS ORDERED: PANTOPRAZOLE 40 MG TAB DR PO SCH (09:00)
[2021-07-17] MEDS ORDERED: ASPIRIN 81MG CHEW TAB PO SCH (09:00)
[2021-07-17] MEDS ORDERED: CLOPIDOGREL 75MG TAB PO SCH ×2 (09:00→09:50)
[2021-07-17] MEDS: LISINOPRIL 10 MG TABLET PO SCH (09:00)
[2021-07-17] MEDS: FAMOTIDINE 20MG TAB PO SCH (10:30)
[2021-07-17] MEDS: DOXYCYCLINE HYCLATE 100 MG TABLET PO SCH (10:30)
[2021-07-17] MEDS: KCL 20 MEQ ERTAB PO SCH (11:19)
[2021-07-17 11:34] VITALS: BP 113/63
[2021-07-17 12:30] VITALS: BP 130/56
== END 2021-07-17 16:44 | disposition home or self-care (01) | DRG 271 ==
LOC: EDH 16:59 → OBSVTOIN 17:00 → EDHIP 17:00 → INTOOBSV 17:00 → 3AH 07-02 03:14
PROVIDERS: ADMIT Internal Medicine; ATTEND Internal Medicine
PROC: 0KBW0ZZ Excision of Left Foot Muscle, Open Approach (ICD-10-PCS; 2021-07-03)
PROC: 0Y6N0ZD Detachment at Left Foot, Partial 4th Ray, Open Approach (ICD-10-PCS; 2021-07-11)
PROC: 0Y6N0ZF Detachment at Left Foot, Partial 5th Ray, Open Approach (ICD-10-PCS; 2021-07-11)
PROC: B41G1ZZ Fluoroscopy of Left Lower Extremity Arteries using Low Osmolar Contrast (ICD-10-PCS; 2021-07-15)
PROC: 04CU3ZZ Extirpation of Matter from Left Peroneal Artery, Percutaneous Approach (ICD-10-PCS; principal; 2021-07-16)
PROC: 047U3DZ Dilation of Left Peroneal Artery with Intraluminal Device, Percutaneous Approach (ICD-10-PCS; 2021-07-16)
DX: E11.52 Type 2 diabetes mellitus with diabetic peripheral angiopathy with gangrene (principal); L03.116 Cellulitis of left lower limb; E87.1 Hypo-osmolality and hyponatremia; M86.672 Other chronic osteomyelitis, left ankle and foot; I70.269 Atherosclerosis of native arteries of extremities with gangrene, unspecified extremity; E11.621 Type 2 diabetes mellitus with foot ulcer; E11.69 Type 2 diabetes mellitus with other specified complication; I10 Essential (primary) hypertension; R31.9 Hematuria, unspecified; L97.524 Non-pressure chronic ulcer of other part of left foot with necrosis of bone; L98.494 Non-pressure chronic ulcer of skin of other sites with necrosis of bone; B95.62 Methicillin resistant Staphylococcus aureus infection as the cause of diseases classified elsewhere; S91.332A Puncture wound without foreign body, left foot, initial encounter; D64.9 Anemia, unspecified; E11.42 Type 2 diabetes mellitus with diabetic polyneuropathy; E78.00 Pure hypercholesterolemia, unspecified; G89.29 Other chronic pain; M71.20 Synovial cyst of popliteal space [Baker], unspecified knee; Y93.89 Activity, other specified; Y92.89 Other specified places as the place of occurrence of the external cause; Y99.8 Other external cause status; Z86.14 Personal history of Methicillin resistant Staphylococcus aureus infection
CPT/HCPCS: 36247; 36415; 37229; 72170; 73630; 73720; 74178; 75635; 75710; 75716; 76770; 80048; 80053; 80202; 81001; 82948; 83036; 83605; 84132; 84145; 85014; 85018; 85025; 85027; 85347; 85610; 85730; 87040; 87070; 87076; 87077; 87088; 87186; 87205; 90715; 93926; 93971; 97039; 99156; 99157; C1760; C1769; C1893; C1894; G0378; J0360; J0690; J1644; J1650; J1815; J2001; J2250; J2370; J2405; J2543; J2704; J3010; J3370; J3480; J3490; J7030; J7050; J7120; Q9967

== ENCOUNTER 2021-08-16 02:11 | Inpatient (IN) | payer MEDICAID, OTHER ==
[~2021-08-16] VITALS: Ht 154.9 cm; Wt 58.1 kg
[2021-08-16] MEDS ORDERED: PANTOPRAZOLE 40MG INJ 80 MG in 0.9%NACL 100ML 100 ML IVP SCH (02:30)
[2021-08-16] MEDS ORDERED: PANTOPRAZOLE 40 MG/VIAL IV SCH (02:30)
[2021-08-16] MEDS ORDERED: 0.9%NACL 1000ML 1,000 ML IV ONE (02:30)
[2021-08-16] MEDS ORDERED: ONDANSETRON 4MG INJ IVP ONE (02:30)
[2021-08-16 02:45] LABS: BASOPHILS % (AUTO) 0.8 % (0.0-5.0); EOSINOPHILS % (AUTO) 0.7 % (0.0-8.0); HEMATOCRIT 39.7 % (36-48); LYMPHOCYTES % (AUTO) 24.1 % (21.0-51.0); MEAN CORPUSCULAR HEMOGLOBIN 29.2 pg (27.0-33.0); MEAN CORPUSCULAR VOLUME 85.9 fL (79-99); MONOCYTES % (AUTO) 5.8 % (3.0-13.0); NEUTROPHILS % (AUTO) 68.4 % (40.0-77.0); PLATELET COUNT (AUTO) 215 K/uL (130-400); RED BLOOD CELL COUNT(AUTO) 4.62 MIL/uL (4.00-5.50); RED CELL DISTRIBUTION WIDTH 12.9 % (11.0-15.5); WHITE BLOOD COUNT (AUTO) 9.1 K/uL (4.8-10.8)
[2021-08-16] MEDS ORDERED: 0.9%NACL 100ML 100 ML ONE (02:51)
[2021-08-16 02:56] LABS: CREATININE 1.7 mg/dL (0.5-1.5); POTASSIUM 3.9 mmol/L (3.5-5.1)
[2021-08-16 02:59] LABS: INR 1.06 (0.85-1.15); PROTHROMBIN TIME 11.5 SEC (9.6-11.6)
[2021-08-16 03:00] LABS: PARTIAL THROMBOPLASTIN TIME 25.2 SEC (26.3-35.5)
[2021-08-16 03:01] LABS: ALBUMIN 4.4 g/dL (3.5-5.0); BILIRUBIN,TOTAL 0.6 mg/dL (0.2-1.0); TOTAL PROTEIN, SERUM 8.7 g/dL (6.0-8.3)
[2021-08-16] MEDS ORDERED: MORPHINE 2 MG SYG IV PRN (04:30)
[2021-08-16] MEDS ORDERED: ACETAMINOPHEN 325 MG TAB PO PRN (04:30)
[2021-08-16] MEDS: 0.9%NACL 1000ML 1,000 ML IV SCH ×3 (05:18→21:27)
[2021-08-16] MEDS ORDERED: INSULIN HUMULIN R 100 UNIT/ML 3ML SQ SCH (06:00)
[2021-08-16 06:10] VITALS: BP 166/98
[2021-08-16 08:30] VITALS: BP 188/106
[2021-08-16] MEDS: ONDANSETRON 4MG INJ IV PRN ×2 (08:45→17:10)
[2021-08-16] MEDS: HYDRALAZINE 20MG/ML VIAL IV PRN (08:46)
[2021-08-16 09:53] LABS: CREATININE 1.6 mg/dL (0.5-1.5); MAGNESIUM 2.1 mg/dL (1.80-2.40); POTASSIUM 5.1 mmol/L (3.5-5.1)
[2021-08-16] MEDS: INSULIN HUMULIN R 100 UNIT/ML 3ML SQ SCH ×3 (10:00→22:00)
[2021-08-16 11:35] VITALS: BP 126/67
[2021-08-16] MEDS: PANTOPRAZOLE 40MG INJ 80 MG in 0.9%NACL 100ML 100 ML IV SCH (11:39)
[2021-08-16] MEDS ORDERED: 0.9% NACL 250ML 250 ML IV SCH (15:00)
[2021-08-16] MEDS ORDERED: AZITHROMYCIN 500MG VIAL IVPB SCH (15:00)
[2021-08-16 16:30] VITALS: BP 151/94
[2021-08-16] MEDS ORDERED: COMPOUND IV MISC 1 EACH IVSOLN MISC PRN (17:00)
[2021-08-16] MEDS: NACL 0.9% IVPB SCH (18:12)
[2021-08-16] MEDS: AZITHROMYCIN IVPB SCH (18:12)
[2021-08-16] MEDS ORDERED: PROMETHAZINE HCL 25 MG/ML 1ML AMPULE IM SCH (19:00)
[2021-08-16 20:06] LABS: HEMATOCRIT 34.7 % (36-48)
[2021-08-16 20:08] VITALS: BP 143/80
[2021-08-16 23:53] VITALS: BP 158/96
[2021-08-17] VITALS (20 sets, daily range): BP systolic 95–187; BP diastolic 54–106
[2021-08-17] MEDS: INSULIN HUMULIN R 100 UNIT/ML 3ML SQ SCH ×4 (04:00→22:00)
[2021-08-17 05:04] LABS: APPEARANCE,URINE Clear (CLEAR); BILIRUBIN,URINE Negative (NEGATIVE); COLOR,URINE Yellow (YELLOW); GLUCOSE, URINE (UA) 500 mg/dL (NEGATIVE); KETONES,URINE 40 mg/dL (NEGATIVE); LEUKOCYTE ESTERASE ,URINE Moderate (NEGATIVE); NITRATE,URINE Negative (NEGATIVE); OCCULT BLOOD,URINE Negative (NEGATIVE); PH,URINE 7.5 (5.0-8.0); PROTEIN,URINE Trace mg/dL (NEGATIVE); UROBILINOGEN,URINE 0.2 mg/dL (0.2-1.0)
[2021-08-17 05:24] LABS: RBC,URINE None Seen /HPF (0-1)
[2021-08-17 05:24] LABS: BASOPHILS % (AUTO) 0.5 % (0.0-5.0); EOSINOPHILS % (AUTO) 1.3 % (0.0-8.0); HEMATOCRIT 35.4 % (36-48); LYMPHOCYTES % (AUTO) 30.6 % (21.0-51.0); MEAN CORPUSCULAR HEMOGLOBIN 29.3 pg (27.0-33.0); MEAN CORPUSCULAR HGB CONC 32.8 g/dL (32.0-36.0); MEAN CORPUSCULAR VOLUME 89.4 fL (79-99); MONOCYTES % (AUTO) 7.3 % (3.0-13.0); NEUTROPHILS % (AUTO) 60.1 % (40.0-77.0); PLATELET COUNT (AUTO) 183 K/uL (130-400); RED BLOOD CELL COUNT(AUTO) 3.96 MIL/uL (4.00-5.50); WHITE BLOOD COUNT (AUTO) 8.3 K/uL (4.8-10.8)
[2021-08-17 05:25] LABS: BACTERIA,URINE None Seen /HPF (None Seen); SQUAMOUS EPITHELIAL CELL,UR Rare /HPF (0-2); YEAST,URINE BUDDING None Seen /HPF (None Seen)
[2021-08-17] MEDS ORDERED: METF-444 PO (05:34)
[2021-08-17] MEDS ORDERED: AEC81 PO (05:34)
[2021-08-17 05:38] LABS: CREATININE 1.4 mg/dL (0.5-1.5); POTASSIUM 3.1 mmol/L (3.5-5.1)
[2021-08-17] MEDS: POTASSIUM CHLORIDE 20MEQ/100ML 100 ML IV PRN ×2 (06:29→08:53)
[2021-08-17] MEDS: LIDOCAINE HCL-MPF 1% 2ML VIAL IV PRN ×2 (06:29→08:53)
[2021-08-17] MEDS: 0.9%NACL 1000ML 1,000 ML IV SCH ×3 (06:30→22:53)
[2021-08-17] MEDS: HYDRALAZINE 20MG/ML VIAL IV PRN (08:47)
[2021-08-17] MEDS: PANTOPRAZOLE 40MG INJ 80 MG in 0.9%NACL 100ML 100 ML IV SCH (08:48)
[2021-08-17] MEDS: ONDANSETRON 4MG INJ IV PRN (10:23)
[2021-08-17 10:25] LABS: HEMATOCRIT 35.1 % (36-48)
[2021-08-17] MEDS ORDERED: PROPOFOL 10 MG/ML 20ML VIAL IV ONE ×2 (11:28→12:27)
[2021-08-17] MEDS ORDERED: PHENYLEPHRINE HCL 10 MG/ML 1ML VIAL IV ONE (11:29)
[2021-08-17] MEDS ORDERED: LIDOCAINE HCL 1% 20 ML VIAL ONE (11:29)
[2021-08-17] MEDS ORDERED: ERYTHROMYCIN LACTOBIONATE 250 MG in 0.9%NACL 100ML 100 ML IV SCH ×2 (13:04→16:00)
[2021-08-17] MEDS: CEFTRIAXONE 1G VIAL IVP SCH (13:07)
[2021-08-17 16:11] LABS: HEMATOCRIT 34.9 % (36-48)
[2021-08-17] MEDS: NACL 0.9% IVPB SCH (16:30)
[2021-08-17] MEDS: AZITHROMYCIN IVPB SCH (16:30)
[2021-08-17] MEDS: DIPHENOXYLATE HCL/ATROPINE 2.5/0.025 MG TAB PO PRN (16:59)
[2021-08-17] MEDS: ERYTHROMYCIN LACTOBIONATE 250 MG in 0.9%NACL 100ML 100 ML IV SCH ×2 (18:34→23:53)
[2021-08-17 22:56] LABS: HEMATOCRIT 30.4 % (36-48)
[2021-08-18 03:46] VITALS: BP 151/86
[2021-08-18 04:32] LABS: BASOPHILS % (AUTO) 0.5 % (0.0-5.0); EOSINOPHILS % (AUTO) 1.5 % (0.0-8.0); HEMATOCRIT 32.7 % (36-48); LYMPHOCYTES % (AUTO) 25.9 % (21.0-51.0); MEAN CORPUSCULAR VOLUME 87.9 fL (79-99); MONOCYTES % (AUTO) 5.2 % (3.0-13.0); NEUTROPHILS % (AUTO) 66.6 % (40.0-77.0); PLATELET COUNT (AUTO) 162 K/uL (130-400); RED BLOOD CELL COUNT(AUTO) 3.72 MIL/uL (4.00-5.50); RED CELL DISTRIBUTION WIDTH 13.3 % (11.0-15.5); WHITE BLOOD COUNT (AUTO) 7.5 K/uL (4.8-10.8)
[2021-08-18 05:14] LABS: ALBUMIN 3.3 g/dL (3.5-5.0); BILIRUBIN,TOTAL 0.4 mg/dL (0.2-1.0); CREATININE 1.1 mg/dL (0.5-1.5); MAGNESIUM 1.6 mg/dL (1.80-2.40); TOTAL PROTEIN, SERUM 6.8 g/dL (6.0-8.3)
[2021-08-18 05:20] LABS: POTASSIUM 2.9 mmol/L (3.5-5.1)
[2021-08-18] MEDS: LIDOCAINE HCL-MPF 1% 2ML VIAL IV PRN ×3 (05:46→13:05)
[2021-08-18] MEDS: POTASSIUM CHLORIDE 20MEQ/100ML 100 ML IV PRN ×3 (05:46→13:05)
[2021-08-18] MEDS: ERYTHROMYCIN LACTOBIONATE 250 MG in 0.9%NACL 100ML 100 ML IV SCH (05:55)
[2021-08-18] MEDS: 0.9%NACL 1000ML 1,000 ML IV SCH (06:38)
[2021-08-18] MEDS: INSULIN HUMULIN R 100 UNIT/ML 3ML SQ SCH ×5 (06:44→21:05)
[2021-08-18] MEDS: PANTOPRAZOLE 40 MG TAB DR PO SCH (06:44)
[2021-08-18] MEDS: PROMETHAZINE HCL 25 MG/ML 1ML AMPULE IM PRN ×2 (07:19→16:52)
[2021-08-18] MEDS: PANTOPRAZOLE 40MG INJ 80 MG in 0.9%NACL 100ML 100 ML IV SCH (08:33)
[2021-08-18] MEDS: MAGNESIUM 2GM PREMIX 50ML 50 ML IV PRN (08:34)
[2021-08-18 08:43] VITALS: BP 147/80
[2021-08-18] MEDS ORDERED: MECLIZINE HCL 25 MG TABLET PO SCH (11:00)
[2021-08-18] MEDS: CEFTRIAXONE 1G VIAL IVP SCH (11:50)
[2021-08-18 12:04] VITALS: BP 177/104
[2021-08-18] MEDS ORDERED: POTASSIUM CHLORIDE 10% ELIXIR 20 MEQ/15 ML UDCUP PO PRN (15:00)
[2021-08-18] MEDS: ERYTHROMYCIN BASE 250 MG TABLET PO SCH ×2 (16:38→21:03)
[2021-08-18] MEDS: DIPHENOXYLATE HCL/ATROPINE 2.5/0.025 MG TAB PO PRN (16:38)
[2021-08-18] MEDS: NACL 0.9% IVPB SCH (16:38)
[2021-08-18] MEDS: LACTATED RINGERS 1000ML 1,000 ML IV SCH (16:38)
[2021-08-18] MEDS: AZITHROMYCIN IVPB SCH (16:38)
[2021-08-18] MEDS: METRONIDAZOLE 500 MG TABLET PO SCH ×2 (16:38→22:32)
[2021-08-18 16:46] VITALS: BP 156/105
[2021-08-18 19:32] VITALS: BP 175/97
[2021-08-18] MEDS: MECLIZINE HCL 25 MG TABLET PO SCH (21:03)
[2021-08-18 23:52] VITALS: BP 148/89
[2021-08-19] MEDS: LACTATED RINGERS 1000ML 1,000 ML IV SCH ×2 (00:03→11:00)
[2021-08-19 03:10] VITALS: BP 146/88
[2021-08-19 05:25] LABS: HEMATOCRIT 32.1 % (36-48); MEAN CORPUSCULAR HEMOGLOBIN 29.3 pg (27.0-33.0); MEAN CORPUSCULAR HGB CONC 33.6 g/dL (32.0-36.0); MEAN CORPUSCULAR VOLUME 87.2 fL (79-99); RED BLOOD CELL COUNT(AUTO) 3.68 MIL/uL (4.00-5.50); RED CELL DISTRIBUTION WIDTH 13.1 % (11.0-15.5); WHITE BLOOD COUNT (AUTO) 5.5 K/uL (4.8-10.8)
[2021-08-19 05:35] LABS: ALBUMIN 3.2 g/dL (3.5-5.0); BILIRUBIN,TOTAL 0.4 mg/dL (0.2-1.0); MAGNESIUM 1.7 mg/dL (1.80-2.40); TOTAL PROTEIN, SERUM 6.6 g/dL (6.0-8.3)
[2021-08-19 05:38] LABS: POTASSIUM 2.7 mmol/L (3.5-5.1)
[2021-08-19] MEDS: METRONIDAZOLE 500 MG TABLET PO SCH ×2 (06:17→15:39)
[2021-08-19] MEDS: PANTOPRAZOLE 40 MG TAB DR PO SCH (06:17)
[2021-08-19] MEDS: ERYTHROMYCIN BASE 250 MG TABLET PO SCH ×3 (06:17→15:39)
[2021-08-19] MEDS: LIDOCAINE HCL-MPF 1% 2ML VIAL IV PRN (06:18)
[2021-08-19] MEDS: POTASSIUM CHLORIDE 20MEQ/100ML 100 ML IV PRN (06:18)
[2021-08-19] MEDS: MAGNESIUM 2GM PREMIX 50ML 50 ML IV PRN (06:19)
[2021-08-19] MEDS: PROMETHAZINE HCL 25 MG/ML 1ML AMPULE IM PRN (06:53)
[2021-08-19] MEDS: INSULIN HUMULIN R 100 UNIT/ML 3ML SQ SCH ×3 (07:30→17:55)
[2021-08-19 08:12] VITALS: BP 170/95
[2021-08-19] MEDS: MECLIZINE HCL 25 MG TABLET PO SCH (08:34)
[2021-08-19] MEDS: CEFTRIAXONE 1G VIAL IVP SCH (10:40)
[2021-08-19] MEDS: KCL 20 MEQ ERTAB PO PRN ×2 (10:41→13:54)
[2021-08-19 12:35] VITALS: BP 137/82
[2021-08-19 12:48] LABS: CREATININE 1.2 mg/dL (0.5-1.5); POTASSIUM 3.8 mmol/L (3.5-5.1)
[2021-08-19] MEDS: ONDANSETRON 4MG INJ IV PRN (15:40)
[2021-08-19 16:11] VITALS: BP 129/68
[2021-08-19 16:14] VITALS: BP 144/96
[2021-08-19] MEDS ORDERED: METR375C2 PO (17:44)
== END 2021-08-19 20:06 | disposition home or self-care (01) | DRG 378 ==
LOC: EDH 02:11 → EDHIP 02:12 → 4DH 05:58
PROVIDERS: ADMIT Hospitalist; ATTEND Hospitalist
PROC: 0DB98ZX Excision of Duodenum, Via Natural or Artificial Opening Endoscopic, Diagnostic (ICD-10-PCS; principal; 2021-08-17)
PROC: 0DB78ZX Excision of Stomach, Pylorus, Via Natural or Artificial Opening Endoscopic, Diagnostic (ICD-10-PCS; 2021-08-17)
PROC: 0DB68ZX Excision of Stomach, Via Natural or Artificial Opening Endoscopic, Diagnostic (ICD-10-PCS; 2021-08-17)
PROC: 0DB38ZX Excision of Lower Esophagus, Via Natural or Artificial Opening Endoscopic, Diagnostic (ICD-10-PCS; 2021-08-17)
DX: K29.01 Acute gastritis with bleeding (principal); N17.9 Acute kidney failure, unspecified; N39.0 Urinary tract infection, site not specified; A04.9 Bacterial intestinal infection, unspecified; E11.51 Type 2 diabetes mellitus with diabetic peripheral angiopathy without gangrene; E11.65 Type 2 diabetes mellitus with hyperglycemia; E11.43 Type 2 diabetes mellitus with diabetic autonomic (poly)neuropathy; I10 Essential (primary) hypertension; K21.00 Gastro-esophageal reflux disease with esophagitis, without bleeding; D50.9 Iron deficiency anemia, unspecified; K31.84 Gastroparesis; E87.6 Hypokalemia; Z79.84 Long term (current) use of oral hypoglycemic drugs; Z89.022 Acquired absence of left finger(s); Z89.411 Acquired absence of right great toe; Z83.3 Family history of diabetes mellitus; Z80.0 Family history of malignant neoplasm of digestive organs
CPT/HCPCS: 36415; 43239; 74176; 76700; 80048; 80053; 81001; 82150; 82270; 82948; 83690; 83735; 84132; 85014; 85018; 85025; 85027; 85610; 85730; 86677; 86850; 86900; 86901; 87077; 87088; 87186; 87324; 87426; 87635; 88305; 88342; 99291; A4606; C9113; G0378; J0360; J0456; J0696; J1364; J1815; J2370; J2405; J2550; J2704; J3475; J3480; J3490; J7030; J7050; J7120